=== PATIENT | female | born 1975 | race African-American/Black ===

== ENCOUNTER 2023-03-29 19:15 | Emergency (ER) | payer BC ==
[~2023-03-29] VITALS: Ht 165.1 cm; Wt 106.0 kg
[2023-03-29 19:24] VITALS: O2SAT 98
[2023-03-29 20:00] VITALS: BP 148/75; PULSE 104; RESP 18; TEMP 99.7
[2023-03-29] MEDS ORDERED: ACETAMINOPHEN 325MG TABLET PO ONE (20:00)
[2023-03-29] MEDS ORDERED: IBUPROFEN 400MG TABLET PO ONE (20:00)
[2023-03-29] MEDS ORDERED: ONDANSETRON 4MG ODT PO ONE (21:00)
[2023-03-29] MEDS ORDERED: ONDA4TAB50 MT ×5 (22:13→22:18)
[2023-03-29] MEDS ORDERED: TOPUD MT (22:14)
[2023-03-29] MEDS ORDERED: IBUP-2028 MT (22:14)
== END 2023-03-29 22:39 | disposition home or self-care (01) ==
LOC: ER 19:15
DX: B34.9 Viral infection, unspecified (principal); R51.9 Headache, unspecified; R11.10 Vomiting, unspecified; Z20.822 Contact with and (suspected) exposure to COVID-19
CPT/HCPCS: 99283; 87426; 87804 ×2; Q0162